=== PATIENT | male | born 1990 | race Caucasian/White ===

== ENCOUNTER 2024-04-18 15:34 | Emergency (ER) | payer OTHER, SELFPAY ==
[2024-04-18 15:35] VITALS: BP 130/84; PULSE 76; RESP 16; TEMP 37.1; O2SAT 100; BMI 29.3
[2024-04-18 17:46] LABS: Basophil# 0.05 X10^3/uL; Basophil% 0.7 % (0-1); Eosinophil# 0.27 X10^3/uL; Eosinophils% 3.7 % (0-5); Hematocrit 46.3 % (40-54); Lymphocyte % 31.9 % (19-41); Mean Corp Hgb Conc 34.6 g/dL (32-36); Mean Corpuscular Hgb 28.7 pg (27.0-32.0); Mean Platelet Vol. 8.9 fl (6.2-12.0); Monocyte% 8.3 % (0-10); NRBC Flagged by Analyzer 0 % (0-5); Neutrophil # 3.99 X10^3/uL (2.7-7.7); Neutrophil % 55.3 % (47-70); Platelet Count 256 K/mm3 (150-450); RBC Distribution Width CV 12.3 % (11.6-14.6); RBC Distribution Width SD 37.2 fl (35.1-43.9); Red Blood Count 5.58 M/mm3 (4.6-6.2); White Blood Count 7.2 K/mm3 (4.4-11.0)
[2024-04-18 18:11] LABS: ALB/GLOB Ratio 1.1 RATIO (0.9-2.4); AST(SGOT) 21 U/L (15-37); Alanine Aminotransfer ALT/SGPT 40 U/L (16-61); Albumin, Serum 4.1 g/dL (3.2-5.0); Alkaline Phosphatase 82 U/L (45-117); Anion Gap 4 (5-15); BUN 12 mg/dL (7-18); BUN/Creat Ratio 12.5 RATIO (10-20); Calcium,Total 9.4 mg/dL (8.5-10.1); Chloride 106 mmol/L (98-107); Creatinine, Serum 0.96 mg/dL (0.70-1.30); EST Glomerular Filtration Rate 96 mL/min (>60); Est Glom Filt Rate - Afr Amer 116 mL/min (>60); Estimated Creatinine Clearance 130.27 ml/min; Globulin 3.7 g/dL (2.2-4.2); Glucose 99 mg/dL (74-106); Potassium 4.3 mmol/L (3.5-5.1); Protein, Total 7.8 g/dL (6.4-8.2); Sodium Level 138 mmol/L (136-145)
[2024-04-18 18:51] VITALS: BP 138/93; PULSE 88; RESP 16; O2SAT 98
--- NOTE | 2024-04-18 18:53 | CT_ITS ---
PROCEDURE: ABDOMEN/PELVIS W IV CONT ONLY REASON FOR EXAM: 33-year-old male, left lower quadrant abdominal pain. TECHNIQUE: Abdomen and pelvis CT with intravenous contrast. No oral contrast. IV CONTRAST: [id number] COMPARISON: None. FINDINGS: Lung bases: Bibasilar atelectasis. Liver: The liver is size without focal hepatic mass. The major portal veins are patent. No biliary ductal dilation. Gallbladder: No radiopaque stones within the gallbladder. Spleen: Unremarkable. Pancreas: Unremarkable. Adrenals: Unremarkable. Kidneys: No hydronephrosis or nephrolithiasis. Bladder: The urinary bladder is minimally distended and unremarkable. Reproductive Organs: Unremarkable. Bowel: Mild stranding and thickening of the adjacent peritoneum along the left lateral descending colon, with hyperattenuating rim. The bowel loops are normal in caliber. No ascites or pneumoperitoneum. Normal appendix. Lymph nodes: No suspicious lymph node enlargement. Vasculature: Major vascular structures are unremarkable. Bones/soft tissues: No aggressive osseous lesions. CT/Abdomen/Pelvis W IV Cont ONLY IMPRESSION: Findings of left lower quadrant epiploic appendagitis, which is a self resolvin g diagnosis and does not require dedicated follow-up. One or more dose reduction techniques were used (e.g., Automated exposure contr ol, adjustment of the mA and/or kV according to patient size, use of iterative reconstruction technique). Reading Location: [facility]
[2024-04-18] MEDS: 0.9% Normal Saline (1000mL) 1,000 ML 999 ML IV (18:56)
[2024-04-18 19:04] LABS: Bacteria 0 SEEN /hpf (None Seen); Squamous Epithelial Cells - UA 0 SEEN /hpf (0-5)
--- NOTE | 2024-04-18 19:08 | EX.ED.DYSGE1 ---
HPI History of Present Illness Chief Complaint: Abd Pain Narrative Narrative: Chief complaint and HPI: Left-sided abdominal pain. 33-year-old male with no significant past medical history presents for evaluation of left-sided abdominal pain. Mostly located in the left lower quadrant. Patient states onset of symptoms was . States the pain has not improved. Patient states that he was lifting and pulling heavy things and shortly after developed pain. He denies any fever, chills, shortness of breath, chest pain, nausea, vomiting, diarrhea, constipation, dysuria. Pain is worse with movement. Patient was originally seen at urgent care and was sent to our emergency department. Review of systems: See HPI Medications: As listed on the chart Allergies: As listed on the chart PFSH: Per chart Vital signs: As listed on the chart. Reviewed. Physical exam: Gen: A&O x3, NAD Head: Normocephalic, atraumatic Eyes: No sclera icterus, conjunctiva clear ENT: Moist mucous membranes Neck: Trachea midline, No JVD CV: RRR, no murmurs, no peripheral edema Resp: Lungs CTA BL, no w/r/c GI: Abd soft, non-distended, tender to palpation in the left upper and lower quadrant, + mild voluntary guarding, no rebound or rigidity : No CVA tenderness Musc: Full ROM, no deformity Skin: Warm, dry Neuro: Alert, oriented, grossly intact, sensation intact Psych: Cooperative, appropriate mood and affect PFSH PFSH Medical History no medical history Home Medications ?Medication ?Instructions ?Recorded ?Last Taken ?Type NK 04/18/24 Unknown History Allergy/AdvReac Type Severity Reaction Status Date / Time No Known Allergies Allergy Verified 04/18/24 15:37 Surgical History no surgical history Social History Smoking Status: Never smoker EXAM Physical Exam Const Vital Signs: 04/18/24 15:35 04/18/24 18:51 04/18/24 20:00 Temperature 98.7 F Temperature Source Oral Pulse Rate 76 88 84 Respiratory Rate 16 16 14 Blood Pressure 130/84 H 138/93 H 104/77 Blood Pressure Mean 99 108 86 Pulse Ox 100 98 98 Oxygen Delivery Method Room Air Room Air Room Air 04/18/24 20:41 Temperature 98.0 F Temperature Source Pulse Rate 87 Respiratory Rate 18 Blood Pressure 136/71 H Blood Pressure Mean 92 Pulse Ox 98 Oxygen Delivery Method MDM MDM MDM Narrative Medical decision making narrative: 33-year-old male with no significant past medical history presents for evaluation of left-sided abdominal pain. Differential diagnosis includes but is not limited to viral illness, musculoskeletal pain, diverticulitis, urolithiasis, pancreatitis, UTI. Laboratory workup ordered including CT abdomen pelvis. Patient offered pain medication but declined. CBC without leukocytosis or anemia. CMP relatively unremarkable without WILLIAM, transaminitis. Lipase unremarkable. UA negative for UTI. CT abdomen abdomen and pelvis shows left lower quadrant epiploic appendagitis. This is likely the source of the patient's pain. Treatment is with NSAIDs. Patient was updated on his findings. He was informed that symptoms usually resolve in 2 weeks. Follow-up with PCP. Return precautions explained. If pain does not improve patient needs to follow-up with general surgery. He confirmed understand the plan. Ibuprofen as needed for pain. Patient stable to discharge home. Impression: 1. Left lower quadrant epiploic appendagitis Lab Data Labs: Laboratory Results - last 24 hr 04/18/24 04/18/24 04/18/24 17:39 18:52 18:58 WBC 7.2 RBC 5.58 Hgb 16.0 Hct 46.3 MCV 83.0 MCH 28.7 MCHC 34.6 RDW Std Deviation 37.2 RDW Coeff of Fabiana 12.3 Plt Count 256 MPV 8.9 Immature Gran % (Auto) 0.100 Neut % (Auto) 55.3 Lymph % (Auto) 31.9 [place] % (Auto) 8.3 Eos % (Auto) 3.7 Baso % (Auto) 0.7 Absolute Neuts (auto) 4.0 Absolute Lymphs (auto) 2.30 Nucleated RBC % 0 Sodium 138 Potassium 4.3 Chloride 106 Carbon Dioxide 29.0 Anion Gap 4 L BUN 12 Creatinine 0.96 Estim Creat Clear Calc 130.27 Est GFR (MDRD) Af Amer 116 Est GFR (MDRD) Non-Af 96 BUN/Creatinine Ratio 12.5 Glucose 99 Calcium 9.4 Total Bilirubin 0.40 AST 21 ALT 40 Alkaline Phosphatase 82 Total Protein 7.8 Albumin 4.1 Globulin 3.7 Albumin/Globulin Ratio 1.1 Lipase 27 L Urine Color Yellow Urine Clarity Sl. Cloudy Urine pH 6.0 Ur Specific [place] 1.025 Urine Protein 30 H Urine Glucose (UA) Normal Urine Ketones Negative Urine Occult Blood Negative Urine Nitrite Negative Urine Bilirubin Negative Urine Urobilinogen 1 H Ur Leukocyte Esterase Negative Urine RBC 0-5 SEEN Urine WBC 0-5 SEEN Ur Squamous Epith Cells 0 SEEN Urine Bacteria 0 SEEN Urine Mucus 1+ Radiography Diagnostic Testing: Clinical Impression(s) from Imaging Studies Abdomen/Pelvis CT 04/18/24 18:53 IMPRESSION: Findings of left lower quadrant epiploic appendagitis, which is a self resolving diagnosis and does not require dedicated follow-up. One or more dose reduction techniques were used (e.g., Automated exposure control, adjustment of the mA and/or kV according to patient size, use of iterative reconstruction technique). Reading Location: [facility] Discharge Plan Triage Chief Complaint: Abd Pain ED Provider: Kenn Dickey Dx/Rx/DC Orders Clinical Impression: Epiploic appendagitis Instructions: Epiploic Appendagitis Prescriptions: No Action NK Primary Care Provider: Care Physician,No Primary Referrals: Chuy Myers MD [Med Staff - Active Staff] - 3-5 Days Marlon Sims MD [Med Staff - Active Staff] - 3-5 Days Care Physician,No Primary [Primary Care Provider] - Activity Restrictions/Additional Instructions: Follow-up with general surgery and PCP. Motrin as needed for pain. Return back to the ED if symptoms change or worsen. Print Language: Micronesian Disposition Disposition: Home, Self Care Discharge Date/Time: 04/18/24 20:42
[2024-04-18 19:10] LABS: Color, Urine Yellow (Yellow); Glucose, Dipstick Normal (Normal); Ketone-Dipstick Negative (Negative); Leukocyte Esterase-Dipstick Negative /ul (Negative); Nitrite-Dipstick Negative (Negative); Occult Blood-Urine Negative /ul (Negative); Protein-Dipstick 30 mg/dl (Negative); Specific Gravity, Urine 1.025 (1.002-1.030); Urine Bilirubin Dipstick Negative (Negative); Urine Clarity Sl. Cloudy (Clear); Urine Urobilinogen 1 mg/dl (Normal)
[2024-04-18 19:16] LABS: Lipase 27 U/L (73-393)
[2024-04-18 19:26] LABS: Mucous, Urine 1+ /hpf (<or=2+); Red Blood Cells-Urine 0-5 SEEN /hpf (0-5); White Blood Cells 0-5 SEEN /hpf (0-5)
[2024-04-18 20:00] VITALS: BP 104/77; PULSE 84; RESP 14; O2SAT 98
[2024-04-18 20:41] VITALS: BP 136/71; PULSE 87; RESP 18; TEMP 36.7; O2SAT 98
== END 2024-04-18 20:42 | disposition home or self-care (01) ==
PROVIDERS: Emergency Provider Surgery; Visit Provider Surgery
DX: R10.9 Unspecified abdominal pain (principal); K63.89 Other specified diseases of intestine; Q43.8 Other specified congenital malformations of intestine
CPT/HCPCS: 74177; 80053; 81001; 83690; 85025; 96360; 96361; 99283; Q9967; A4216